=== PATIENT | male | born 1985 | race Caucasian/White ===

== ENCOUNTER 2017-07-31 04:03 | Emergency (ER) | payer OTHER ==
[2017-07-31] MEDS ORDERED: BUPIVACAINE 0.5%-EPI 1:200000 PF 30 ML VIAL SUBQ ONE (04:34)
[2017-07-31] MEDS ORDERED: BUPIVACAINE 0.25%-EPI 1:200000 PF 10 ML VIAL SUBQ ONE (04:37)
[2017-07-31] MEDS ORDERED: LIDOCAINE MPF 2%-EPI 1:200000 20 ML VIAL SUBQ ONE (04:40)
[2017-07-31] MEDS ORDERED: PENICILLIN VK 250 MG TABLET PO STA (04:41)
[2017-07-31] MEDS ORDERED: LIDOCAINE MPF 2%-EPI 1:200000 20 ML VIAL ONE (04:50)
--- NOTE | 2017-07-31 05:01 | ED Physician Documentation ---
PD HPI HEENT - Stated complaint Stated Complaint: TOOTHACHE - Chief complaint Chief Complaint: Heent - History obtained from History obtained from: Patient - History of Present Illness Timing - onset: Yesterday Timing - details: Gradual onset Location: Tooth Associated symptoms: No: Fever, Facial swelling Similar symptoms before: Has not had sx before - Additional information Additional information: The patient is an otherwise healthy 31-year-old active [employer] [place] male who presents with toothache in a left upper tooth. His symptoms started yesterday and have become worse, interfering with his ability to sleep tonight. He denies fever, facial swelling, or visual disturbance. He has used Anbesol without relief. He denies history of similar symptoms in the past. Review of Systems Constitutional: denies: Fever Eyes: denies: Irritation Ears: denies: Ear pain Nose: denies: Congestion Throat: reports: Dental pain / toothache. denies: Sore throat Respiratory: denies: Cough GI: denies: Nausea, Vomiting Skin: denies: Rash Neurologic: denies: Headache PD PAST MEDICAL HISTORY - Past Medical History Past Medical History: No Endocrine/Autoimmune: None - Past Surgical History Past Surgical History: No - Present Medications Home Medications: Ambulatory Orders Medication Instructions Recorded Confirmed HYDROcod/ACETAM 5/325 [Vicodin 1 - 2 ea PO Q6H PRN #14 tablet 07/31/17 5/325] Penicillin V Potassium 500 mg PO QID #40 tablet 07/31/17 - Allergies Allergies/Adverse Reactions: Allergies Allergy/AdvReac Type Severity Reaction Status Date / Time No Known Drug Allergies Allergy Verified 07/31/17 04:11 - Social History Does the pt smoke?: No Smoking Status: Never smoker Does the pt drink ETOH?: Yes Does the pt have substance abuse?: No - POLST Patient has POLST: No PD ED PE NORMAL - Vitals Vital signs reviewed: Yes (Initially hypertensive.) - General General: Alert and oriented X 3, Well developed/nourished - HEENT HEENT: Atraumatic, EOMI, Ears normal, Pharynx benign, Other (Tenderness palpation of the left upper lateral incisor. There is no gingival swelling or erythema. Oropharynx nonerythematous.) - Neck Neck: No adenopathy - Cardiac Cardiac: RRR - Respiratory Respiratory: No respiratory distress, Clear bilaterally - Derm Derm: No rash Results - Vitals Vitals: Vital Signs - 24 hr 07/31/17 04:09 Temperature 36.6 C Heart Rate 63 Respiratory 18 Rate Blood Pressure 159/70 H O2 Saturation 98 Oxygen O2 Source Room air Procedures - Regional nerve block Nerve block site: Supraperiosteal Right / left: Left Nerve block anesthesia: Lidocaine 2% Nerve block aftercare: Excellent anesthesia, Patient tolerated well, No complications PD MEDICAL DECISION MAKING - ED course Complexity details: considered differential, d/w patient ED course: The patient's presentation is most consistent with apical abscess of the left upper lateral incisor. Treatment in the emergency department included administration of a supraperiosteal field block using 2% lidocaine with epinephrine. Excellent anesthesia was obtained. Penicillin 500 mg was administered orally. The patient is being discharged with prescriptions for penicillin and for Vicodin, 14 tablets. I discussed with him the diagnosis, antibiotic treatment and urgent dental follow-up, as well as potentially worrisome signs or symptoms that should prompt reevaluation in the emergency department. Departure - Departure Disposition: 01 Home, Self Care Clinical Impression: Dental abscess Condition: Stable Instructions: ED Abscess Dental Follow-Up: REMY Gallagher [Provider Group] Prescriptions: HYDROcod/ACETAM 5/325 [Vicodin 5/325] 1 - 2 ea PO Q6H PRN #14 tablet PRN Reason: Pain Penicillin V Potassium 500 mg PO QID #40 tablet Comments: Take penicillin 4 times daily as prescribed. You can use Vicodin as prescribed as needed for pain. Follow-up with dentist as soon as possible. Return to the emergency department if you develop increasing pain, facial swelling, or otherwise worsening symptoms.
[2017-07-31 05:26] VITALS: BP 145/75
== END 2017-07-31 05:07 | disposition home or self-care (01) ==
LOC: ED 04:03
DX: K04.7 Periapical abscess without sinus (principal)
CPT/HCPCS: 64400; 99283; A9270